=== PATIENT | female | born 1940 | race Caucasian/White ===

== ENCOUNTER 2016-09-11 13:25 | Emergency (ER) | payer MEDICARE, OTHER ==
[~2016-09-11] VITALS: Ht 149.9 cm; Wt 67.1 kg
[~2016-09-11 13:25] MED LIST: ASPI81 PO; B COTAB3 PO; CHOL1CAP6 PO; FA-8800C2 PO; LOSA25TA31 PO; MAGN400C2 PO; OMEG12002 PO; OMEP20TA PO; PRAV10 PO; TAB-TAB PO; UMEC1INH PO
[2016-09-11 13:42] VITALS: BP 116/70; PULSE 96; RESP 18; TEMP 98.3; O2SAT 98
[2016-09-11] MEDS ORDERED: EPIP0.3I IM (13:58)
[2016-09-11] MEDS ORDERED: PRAV10TA PO (13:58)
[2016-09-11] MEDS ORDERED: FOLI5CAP PO (13:58)
[2016-09-11] MEDS ORDERED: ASPI81CH CHEW (13:58)
[2016-09-11] MEDS ORDERED: MONT10TA4 PO (13:58)
[2016-09-11] MEDS ORDERED: MULT-120 PO (13:58)
[2016-09-11] MEDS ORDERED: LOSA50TA PO (13:58)
[2016-09-11] MEDS ORDERED: UMEC1INH INH (13:58)
[2016-09-11] MEDS ORDERED: OMEP20TA PO (13:58)
[2016-09-11 14:10] VITALS: O2SAT 96
[2016-09-11] MEDS ORDERED: methylPREDNISolone SOD SUCC 125 MG/2 ML VIAL IVP ONE (14:15)
[2016-09-11] MEDS ORDERED: SODIUM CHLORIDE 0.9% FLUSH 5 ML FLUSH IVF PRN (14:15)
[2016-09-11] MEDS: RESP: ALBUTEROL 2.5 MG/IPRATROPIUM 0.5 MG NEB (SCH) INH ×2 (14:17→14:18)
[2016-09-11 14:20] VITALS: O2SAT 96
[2016-09-11 14:23] LABS: BASOPHIL # 0.1 TH/MM3 (0-0.2); BASOPHIL % 0.7 % (0.0-2.0); EOSINOPHIL # 0.2 TH/MM3 (0-0.4); EOSINOPHIL % 2.1 % (0.0-4.0); HEMATOCRIT 43.3 % (35.0-46.0); LYMPH % 26.5 % (9.0-44.0); LYMPHOCYTE # 2.6 TH/MM3 (1.0-4.8); MEAN CELL VOLUME 88.5 FL (80.0-100.0); MEAN CORPUSCULAR HGB CONC 32.8 % (32.0-36.0); MONO % 9.2 % (0.0-8.0); NEUT % 61.5 % (16.0-70.0); PLATELET COUNT 285 TH/MM3 (150-450); RED BLOOD COUNT 4.89 MIL/MM3 (4.00-5.30); RED CELL DISTRIBUTION WIDTH 13.3 % (11.6-17.2); WHITE BLOOD COUNT 9.8 TH/MM3 (4.0-11.0)
[2016-09-11 14:25] LABS: HEMO FLAGS DIFF FINAL
--- NOTE | 2016-09-11 14:25 | PD ---
HPI Chief Complaint: Respiratory Symptoms Time Seen by Provider: 14:03 Travel History International Travel<30 days: No Contact w/Intl Traveler<30days: No Traveled to known affect area: No History of Present Illness HPI Patient is a 76-year-old female with history of COPD, presents to emergency room for evaluation of not feeling well. Patient reports that for the past week , she has had increased cough and congestion, reports that her cough has been originally nonproductive but reports that her cough has begun to be productive today. Reports that she has been feeling overall increased weakness with myalgias. Denies fever/chills. Patient reports no sick contacts. She did get the flu and pneumonia vaccine this year. No recent travels/trips. PFSH Past Medical History Arthritis: No Asthma: No Autoimmune Disease: No Blood Disorders: No Anxiety: No Depression: No Heart Rhythm Problems: No Cancer: No Cardiac Catheterization: Yes (DECEMBER 2011) Cardiovascular Problems: Yes (ANG[place]) High Cholesterol: Yes Chemotherapy: No Chest Pain: No Congestive Heart Failure: No COPD: No Cerebrovascular Accident: No Diabetes: No Diminished Hearing: No Endocrine: No GERD: Yes Genitourinary: No Hiatal Hernia: No Hypertension: Yes Immune Disorder: No Kidney Stones: No Musculoskeletal: No Neurologic: No Psychiatric: No Reproductive: Yes (FIBROIDS) Respiratory: No Immunizations Current: Yes (SHINGLES) Migraines: No Radiation Therapy: No Renal Failure: No Seizures: No Sickle Cell Disease: No Sleep Apnea: No Thyroid Disease: No Ulcer: No ?: Not Menopausal: Yes Past Surgical History Abdominal Surgery: No AICD: No Appendectomy: Yes Arteriovenous Shunt: No Cardiac Surgery: No Endocrine Surgery: No Eye Surgery: No Genitourinary Surgery: No Gynecologic Surgery: Yes (HYSTERECTOMY 1990) Hysterectomy: Yes Insulin Pump: No Joint Replacement: No Oral Surgery: No Pacemaker: No Thoracic Surgery: No Other Surgery: No Family History Family Myocardial Infarction: Yes (BROTHER AND MOTHER) Social History Alcohol Use: Yes (SOCIAL) Tobacco Use: No Substance Use: No Allergies-Medications (Allergen,Severity, Reaction): Coded Allergies: Amoxicillin (Verified Allergy, Severe, Rash, 09/11/16) Augmentin (Verified Allergy, Severe, HAND SWELLING AND ITCHING, 09/11/16) Cipro (Verified Allergy, Severe, RASH, 09/11/16) Gentamicin (Verified Allergy, Severe, BACTERIAL INFECTION, 09/11/16) Macrobid (Verified Allergy, Severe, HIVES, 09/11/16) Morphine (Verified Allergy, Severe, WEAKNESS, 09/11/16) Nitrofurantoin (Verified Allergy, Severe, RASH, 09/11/16) Ampicillin (Verified Adverse Reaction, Severe, BACTERIAL INFECTION, 09/11/16 ) Clindamycin (Verified Adverse Reaction, Severe, BACTERIAL INFECTION, ) Reported Meds & Prescriptions Reported Meds & Active Scripts Active Reported Multivitamin Women (Multiple Vitamins W/ Minerals) 1 Tab Tab 1 Tab PO DAILY Folic Acid 5 Mg Cap 5 Mg PO DAILY Epipen 2-Watson Inj (Epinephrine) 0.3 Mg/0.3 Ml Pfpen 0.3 Mg IM ONCE PRN Montelukast (Montelukast Sodium) 10 Mg Tab 10 Mg PO HS Incruse Ellipta Inh (Umeclidinium [place] Inh) 0.0625 Mg/Act Inh 62.5 Mcg INH DAILY Aspirin 81 Mg Chew 81 Mg CHEW DAILY Omeprazole 20 Mg Tab 20 Mg PO BID Pravastatin 10 Mg Tab 10 Mg PO EVERY OTHER DAY Losartan (Losartan Potassium) 50 Mg Tab 50 Mg PO DAILY Review of Systems General / Constitutional: No: Fever, Chills Eyes: No: Visual changes HENT: No: Headaches Cardiovascular: No: Chest Pain or Discomfort Respiratory: Positive: Cough, Shortness of Breath, Wheezing Gastrointestinal: No: Nausea, Abdominal Pain Genitourinary: No: Dysuria Musculoskeletal: No: Pain Skin: No Rash Neurologic: No: Weakness Psychiatric: No: Depression Endocrine: No: Polydipsia Hematologic/Lymphatic: No: Easy Bruising Physical Exam Narrative GENERAL: nad, nontoxic SKIN: Warm and dry. HEAD: Atraumatic. Normocephalic. EYES: Pupils equal and round. No scleral icterus. No injection or drainage. ENT: No nasal bleeding or discharge. Mucous membranes pink and moist. NECK: Trachea midline. No JVD. CARDIOVASCULAR: Regular rate and rhythm. No murmur appreciated. RESPIRATORY: Decreased breath sounds equal bilaterally, scattered wheezing GASTROINTESTINAL: Abdomen soft, non-tender, nondistended. Hepatic and splenic margins not palpable. MUSCULOSKELETAL: No obvious deformities. No clubbing. No cyanosis. No edema. NEUROLOGICAL: Awake and alert. No obvious cranial nerve deficits. Motor grossly within normal limits. Normal speech. PSYCHIATRIC: Appropriate mood and affect; insight and judgment normal. Data Data Last Documented VS Vital Signs Date Time Temp Pulse Resp B/P Pulse Ox O2 Delivery O2 Flow Rate FiO2 09/11/16 14:20 96 21 09/11/16 13:42 98.3 96 18 116/70 Orders Complete Blood Count With Diff (09/11/16 14:06) Comprehensive Metabolic Panel (09/11/16 14:06) Act Partial Throm Time (Ptt) (09/11/16 14:06) Prothrombin Time / Inr (Pt) (09/11/16 14:06) Urinalysis - C+S If Indicated (09/11/16 14:06) Influenzae A/B Antigen (09/11/16 14:06) Iv Access Insert/Monitor (09/11/16 14:06) Oximetry (09/11/16 14:06) Chest, Single Ap (09/11/16 14:06) Sodium Chloride 0.9% Flush (Ns Flush) (09/11/16 14:15) Methylprednisolone So Succ Inj (Solumedr (09/11/16 14:15) Albuterol-Ipratropium Neb (Duoneb Neb) (09/11/16 14:15) Labs Laboratory Tests Test 09/11/16 14:10 White Blood Count 9.8 TH/MM3 Red Blood Count 4.89 MIL/MM3 Hemoglobin 14.2 GM/DL Hematocrit 43.3 % Mean Corpuscular Volume 88.5 FL Mean Corpuscular Hemoglobin 29.0 PG Mean Corpuscular Hemoglobin 32.8 % Concent Red Cell Distribution Width 13.3 % Platelet Count 285 TH/MM3 Mean Platelet Volume 7.4 FL Neutrophils (%) (Auto) 61.5 % Lymphocytes (%) (Auto) 26.5 % Monocytes (%) (Auto) 9.2 % Eosinophils (%) (Auto) 2.1 % Basophils (%) (Auto) 0.7 % Neutrophils # (Auto) 6.0 TH/MM3 Lymphocytes # (Auto) 2.6 TH/MM3 Monocytes # (Auto) 0.9 TH/MM3 Eosinophils # (Auto) 0.2 TH/MM3 Basophils # (Auto) 0.1 TH/MM3 CBC Comment DIFF FINAL Differential Comment Sodium Level 139 MEQ/L Potassium Level 3.8 MEQ/L Chloride Level 101 MEQ/L Carbon Dioxide Level 28.6 MEQ/L Anion Gap 9 MEQ/L Blood Urea Nitrogen 22 MG/DL Creatinine 1.20 MG/DL Estimat Glomerular Filtration 44 ML/MIN Rate Random Glucose 106 MG/DL Calcium Level 9.0 MG/DL Total Bilirubin 0.2 MG/DL Aspartate Amino Transf 26 U/L (AST/SGOT) Alanine Aminotransferase 42 U/L (ALT/SGPT) Alkaline Phosphatase 74 U/L Total Protein 8.1 GM/DL Albumin 3.5 GM/DL MDM Medical Decision Making Medical Screen Exam Complete: Yes Emergency Medical Condition: Yes Interpretation(s) Vital Signs Date Time Temp Pulse Resp B/P Pulse Ox O2 Delivery O2 Flow Rate FiO2 09/11/16 13:42 98.3 96 18 116/70 98 Differential Diagnosis COPD Exacerbation, Pneumonia, Influenza, Viral syndrome Narrative Course Patient is a 76 year old female with hx of COPD exacerbation, presents to ER with c/o of cough/congestion, COPD exacerbation for the past week. Reports no fever/chills. Reports that she has not been feeling well and has been feeling overall weak than normal. Denies chest pain. Reports sob. Reports cough initially nonproductive - reports that she has had productive cough today. No sick contacts. Pt does have scattered wheezing on exam. xray of chest ordered. will check for influenza. iv steroids and neb treatments ordered for patient - will re- evaluate Patient reevaluated, patient with decreased wheezing on exam. CBC WBC 9.8 hgb 14.2 hct: 43.3 platelets: 285 Bmp Sodium 139 Chloride 101 Potassium 3.8 Carbon dioxide 28.6 BUN 22 Creatinine 1.2 (baseline for patient) Influenza A and B negative X-ray of chest: No acute cardiopulmonary disease identified All labs and all studies reviewed with patient in detail. Patient reports that she is feeling much better. Patient will follow-up with her primary care doctor and return to ER as needed. Diagnosis Primary Impression: COPD exacerbation Patient Instructions: General Instructions Departure Forms: Tests/Procedures, Work Release Enter return to work date: Sep 14, 2016 Additional Instructions: Please follow-up with your primary care doctor Return to the emergency room as needed Please return to the emergency room if symptoms progress or worsen Med/Other Pt SpecificInfo: Prescription(s) given Scripts Albuterol 8.5 GM Inh (Proair Hfa 8.5 GM Inh)90 Mcg/Act Aer2 Puff INH Q4-6H PRN ( SHORTNESS OF BREATH) #1 INHALER Ref 0 108 mcg/actuation Prov:Kaitlyn Arana DO 09/11/16 Prednisone 20 Mg Tab20 Mg PO BID 5 Days Ref 0 Prov:Kaitlyn Arana DO 09/11/16 Disposition: 01 DISCHARGE HOME Condition: Stable Kaitlyn Arana DO Sep 11, 2016 14:25
[2016-09-11 14:35] LABS: CHLORIDE 101 MEQ/L (98-107); POTASSIUM 3.8 MEQ/L (3.5-5.1); SODIUM (NA) 139 MEQ/L (136-145)
[2016-09-11 14:38] LABS: ANION GAP 9 MEQ/L (5-15); BICARBONATE 28.6 MEQ/L (21.0-32.0); BLOOD UREA NITROGEN 22 MG/DL (7-18)
[2016-09-11 14:41] LABS: ALT (GPT) 42 U/L (10-53); AST (GOT) 26 U/L (15-37)
[2016-09-11 14:42] LABS: GLOMERULAR FILTRATION RATE 44 ML/MIN (>89)
[2016-09-11 14:43] LABS: TOTAL BILIRUBIN ADULT 0.2 MG/DL (0.2-1.0)
[2016-09-11 14:44] LABS: ALKALINE PHOSPHATASE 74 U/L (45-117)
--- NOTE | 2016-09-11 14:50 | RADHPO ---
EXAM DATE/TIME: 09/11/2016 14:21 [facility] COMPARISON: CHEST SINGLE AP, December 16, 2013, 11:44. INDICATIONS : Cough, congestion, short of breath. MEDICAL HISTORY : Hypertension. Hypercholesterolemia. Chronic obstructive pulmonary disease. Asthma. GERD. SURGICAL HISTORY : Hysterectomy. Appendectomy. Cardiac catheterization. Right femur. ENCOUNTER: Initial ACUITY: 1 week PAIN SCORE: 0/10 LOCATION: chest FINDINGS: Single AP view of the chest. The lungs are clear. Cardiomediastinal silhouette within normal limits. No evidence of pleural effusion or pneumothorax. CONCLUSION: No acute cardiopulmonary disease identified. Jono Mcdaniels MD on September 11, 2016 at 14:48 Board Certified Radiologist. This report was verified electronically.
[2016-09-11] MEDS ORDERED: PRED20 PO (15:03)
[2016-09-11] MEDS ORDERED: ALBUAER3 INH (15:03)
[2016-09-11 15:30] LABS: APTT (PATIENT) 26.6 SEC (24.3-30.1); PROTHROMBIN TIME - PATIENT 10.6 SEC (9.8-11.6)
== END 2016-09-11 15:15 | disposition home or self-care (01) ==
LOC: PHED 13:25
DX: J44.1 Chronic obstructive pulmonary disease with (acute) exacerbation (principal); E78.00 Pure hypercholesterolemia, unspecified; K21.9 Gastro-esophageal reflux disease without esophagitis; I10 Essential (primary) hypertension; I20.9 Angina pectoris, unspecified
CPT/HCPCS: 71010; 80053; 85025; 85610; 85730; 87804; 94640; 94664; 96374; 99283; J2930

== ENCOUNTER 2016-12-12 22:12 | Emergency (ER) | payer MEDICARE ==
[~2016-12-12] VITALS: Ht 147.3 cm; Wt 68.6 kg
[~2016-12-12 22:12] MED LIST changes: +ALBUAER3 INH; -ASPI81 PO; +ASPI81CH CHEW; -B COTAB3 PO; -CHOL1CAP6 PO; +EPIP0.3I IM; -FA-8800C2 PO; +FOLI5CAP PO; -LOSA25TA31 PO; +LOSA50TA PO; -MAGN400C2 PO; +MONT10TA4 PO; +MULT-120 PO; -OMEG12002 PO; -PRAV10 PO; +PRAV10TA PO; +PRED20 PO; -TAB-TAB PO; +UMEC1INH INH; -UMEC1INH PO
[2016-12-12 22:18] VITALS: PULSE 88; RESP 18; TEMP 98; O2SAT 98
--- NOTE | 2016-12-12 22:40 | PD ---
HPI Chief Complaint: Injury Time Seen by Provider: 22:32 Travel History International Travel<30 days: No Contact w/Intl Traveler<30days: No Traveled to known affect area: No History of Present Illness HPI 76-year-old female presents to the emergency room for evaluation of left foot pain. Patient tripped and fell approximately 6 hours prior to arrival twisting her foot. Since then she has had excruciating pain with ambulation and range of motion. Pain is 10/10 when she is moving her foot but is manageable when her foot is still. Quality is "tight." She has not taken anything for pain. She has been using a walker to ambulate at home. Denies paresthesias. Denies any other injuries from falling. PFSH Past Medical History Arthritis: No Asthma: No Autoimmune Disease: No Blood Disorders: No Anxiety: No Depression: No Heart Rhythm Problems: No Cancer: No Cardiac Catheterization: Yes (DECEMBER 2011) Cardiovascular Problems: Yes ([place]) High Cholesterol: Yes Chemotherapy: No Chest Pain: No Congestive Heart Failure: No COPD: No Cerebrovascular Accident: No Diabetes: No Diminished Hearing: No Endocrine: No GERD: Yes Genitourinary: No Hiatal Hernia: No Hypertension: Yes Immune Disorder: No Kidney Stones: No Musculoskeletal: No Neurologic: No Psychiatric: No Reproductive: Yes (FIBROIDS) Respiratory: No Immunizations Current: Yes (SHINGLES) Migraines: No Radiation Therapy: No Renal Failure: No Seizures: No Sickle Cell Disease: No Sleep Apnea: No Thyroid Disease: No Ulcer: No Menopausal: Yes Past Surgical History Abdominal Surgery: No AICD: No Appendectomy: Yes Arteriovenous Shunt: No Cardiac Surgery: No Endocrine Surgery: No Eye Surgery: No Genitourinary Surgery: No Gynecologic Surgery: Yes (HYSTERECTOMY 1990) Hysterectomy: Yes Insulin Pump: No Joint Replacement: No Oral Surgery: No Pacemaker: No Thoracic Surgery: No Other Surgery: No Social History Alcohol Use: Yes (SOCIAL) Tobacco Use: No Substance Use: No Allergies-Medications (Allergen,Severity, Reaction): Coded Allergies: Amoxicillin (Verified Allergy, Severe, Rash, 12/12/16) Augmentin (Verified Allergy, Severe, HAND SWELLING AND ITCHING, 12/12/16) Cipro (Verified Allergy, Severe, RASH, 12/12/16) Gentamicin (Verified Allergy, Severe, BACTERIAL INFECTION, 12/12/16) Macrobid (Verified Allergy, Severe, HIVES, 12/12/16) Morphine (Verified Allergy, Severe, WEAKNESS, 12/12/16) Nitrofurantoin (Verified Allergy, Severe, RASH, 12/12/16) Ampicillin (Verified Adverse Reaction, Severe, BACTERIAL INFECTION, 12/12/16 ) Clindamycin (Verified Adverse Reaction, Severe, BACTERIAL INFECTION, ) Reported Meds & Prescriptions Reported Meds & Active Scripts Active Proair Hfa 8.5 GM Inh (Albuterol Sulfate) 90 Mcg/Act Aer 2 Puff INH Q4-6H PRN 108 mcg/actuation Reported Multivitamin Women (Multiple Vitamins W/ Minerals) 1 Tab Tab 1 Tab PO DAILY Folic Acid 5 Mg Cap 5 Mg PO DAILY Epipen 2-Watson Inj (Epinephrine) 0.3 Mg/0.3 Ml Pfpen 0.3 Mg IM ONCE PRN Montelukast (Montelukast Sodium) 10 Mg Tab 10 Mg PO HS Incruse Ellipta Inh (Umeclidinium [place] Inh) 0.0625 Mg/Act Inh 62.5 Mcg INH DAILY Aspirin 81 Mg Chew 81 Mg CHEW DAILY Omeprazole 20 Mg Tab 20 Mg PO BID Pravastatin 10 Mg Tab 10 Mg PO EVERY OTHER DAY Losartan (Losartan Potassium) 50 Mg Tab 50 Mg PO DAILY Review of Systems Except as stated in HPI: all other systems reviewed are Neg Physical Exam Narrative GENERAL: Well-nourished, well-developed elderly female in no acute distress. Afebrile. SKIN: Focused skin assessment warm/dry. No significant erythema or ecchymosis on the left foot. There is mild ecchymosis of the right second toe. HEAD: Normocephalic. EYES: No scleral icterus. No injection or drainage. NECK: Supple, trachea midline. No JVD or lymphadenopathy. CARDIOVASCULAR: Regular rate and rhythm without murmurs, gallops, or rubs. RESPIRATORY: Breath sounds equal bilaterally. No accessory muscle use. EXTREMITY: Left watershed tender to palpation over the fifth metatarsal. Slightly limited range of motion in foot secondary to pain. Very mild edema over the lateral aspect of the foot. 2+ dorsalis pedis pulses. Less than 2 second capillary refill distally. Data Data Last Documented VS Vital Signs Date Time Temp Pulse Resp B/P Pulse Ox O2 Delivery O2 Flow Rate FiO2 12/12/16 22:18 98.0 88 18 98 MDM Medical Decision Making Medical Screen Exam Complete: Yes Emergency Medical Condition: Yes Medical Record Reviewed: Yes Differential Diagnosis Fracture versus contusion versus sprain versus strain Narrative Course 76-year-old female presents to the emergency room for evaluation of left foot pain after trip and fall 6 hours prior to arrival. Patient denies any other injuries. Left foot has mild edema over the lateral aspect. There is tenderness to palpation over the fifth metatarsal. Less than 2 second capillary refill distally. 2+ dorsalis pedis pulse. Patient reports mild pain of the right second toe which is slightly ecchymotic. She has good range of motion and they are mountainous palpation. Patient was offered x-ray with the caveat that it would not change treatment. She declined. Toe will be zenaida taped to the adjacent toe. X-ray of the left foot is ordered and pending. Patient declined pain medication. Patient signed out to nighttime provider pending x-ray results. Please see his note for further details. Condition: Stable Brittany Chau December 12, 2016 22:40
--- NOTE | 2016-12-12 23:05 | RADHPO ---
EXAM DATE/TIME: 12/12/2016 22:46 [facility] COMPARISON: No previous studies available for comparison. INDICATIONS : Left foot pain post fall. MEDICAL HISTORY : None. SURGICAL HISTORY : None. ENCOUNTER: Initial ACUITY: 1 day PAIN SCORE: 5/10 LOCATION: Left foot. FINDINGS: Three view examination of the left foot demonstrates soft tissue swelling laterally. Nondisplaced fra cture along the proximal shaft of the fifth metatarsal. The calcaneus is intact. Bony mineralizatio n is normal. CONCLUSION: Nondisplaced fracture proximal shaft fifth metatarsal. Jesus Beckford MD on December 12, 2016 at 23:01 Board Certified Radiologist. This report was verified electronically.
--- NOTE | 2016-12-12 23:27 | PD ---
Data Data Last Documented VS Vital Signs Date Time Temp Pulse Resp B/P Pulse Ox O2 Delivery O2 Flow Rate FiO2 12/12/16 22:18 98.0 88 18 98 Orders Foot, Complete ([id number]) (12/12/16 ) Splint Or Brace Apply/Monitor (12/12/16 22:40) MDM Medical Record Reviewed: Yes Supervised Visit with SHASHI: No Narrative Course Last 24 hours Impressions Foot X-Ray 12/12/16 0000 Signed Impressions: Service Date/Time: Monday, December 12, 2016 22:46 - CONCLUSION: Nondisplaced fracture proximal shaft fifth metatarsal. Jesus Beckford MD d/w Dr Coronado of podiatry: post-op boot, crutches, f/u Wednesday, non-weight bearing, plan d/w patient who is agreeable with it. Diagnosis Primary Impression: Mcdaniels fracture Qualified Code: S99.199A - Mcdaniels fracture, closed, initial encounter Referrals: Jesus Coronado DPM 2 days Additional Instruction: You have a choice when it comes to health care, and we are glad that you chose [facility]. Hopefully, we have met your expectations on today's visit. You are welcome to return to [facility] at any time, as we are committed to meeting the health care needs of our community. Med/Other Pt SpecificInfo: No Change to Meds Disposition: 01 DISCHARGE HOME Condition: Stable Devonte Gregory MD December 12, 2016 23:27
[2016-12-13] MEDS ORDERED: IBUPROFEN 600 MG TAB PO ONE
[2016-12-13 00:48] VITALS: BP 130/78; PULSE 88; RESP 18; O2SAT 98
== END 2016-12-13 00:51 | disposition home or self-care (01) ==
LOC: PHEFT 22:12
DX: S92.355A Nondisplaced fracture of fifth metatarsal bone, left foot, initial encounter for closed fracture (principal); Y93.89 Activity, other specified; Y92.89 Other specified places as the place of occurrence of the external cause; Y99.8 Other external cause status; X50.1XXA Overexertion from prolonged static or awkward postures, initial encounter; W01.0XXA Fall on same level from slipping, tripping and stumbling without subsequent striking against object, initial encounter
CPT/HCPCS: 73630; 99283; E0113; L2114

== ENCOUNTER 2017-04-20 13:54 | Emergency (ER) | payer MEDICARE ==
[~2017-04-20] VITALS: Ht 147.3 cm; Wt 65.9 kg
[~2017-04-20 13:54] MED LIST changes: -PRED20 PO
[2017-04-20 14:05] VITALS: BP 142/70; PULSE 71; RESP 16; TEMP 98.4; O2SAT 100; O2SAT 98
[2017-04-20] MEDS ORDERED: FOLI400T PO (14:05)
[2017-04-20] MEDS ORDERED: MULT-65 PO (14:05)
[2017-04-20] MEDS ORDERED: MAGN400T2 PO (14:06)
[2017-04-20] MEDS ORDERED: FISHCAP4 PO (14:06)
--- NOTE | 2017-04-20 14:28 | PD ---
HPI Chief Complaint: Allergic/Adverse Reaction Time Seen by Provider: 14:19 Travel History International Travel<30 days: No Contact w/Intl Traveler<30days: No Traveled to known affect area: No History of Present Illness HPI The patient is a 77-year-old female who presents to the emergency department after a bee sting. The patient states that she was stung by a yellow jacket earlier today while working in the yard. The patient states her was stung yesterday while working in the yard. She was stung on the left aspect of the neck approximately one and a half hours prior to arrival. The patient states she had some itching, swelling, redness over the left aspect of the neck. The patient felt like she was short of breath and had difficulty swallowing and subsequently took a Benadryl, one and a half pills. The patient states her symptoms did improve after taken Benadryl. She denies any history of anaphylactic reactions, but does have reactions to bee stings in the past. The patient states that he throws swelling and chest pain have improved. She denies any shortness of breath, nausea, vomiting, or abdominal pain. She does complain of mild redness to left aspect of the neck but notes the itching has improved. PFSH Past Medical History Arthritis: No Asthma: No Autoimmune Disease: No Blood Disorders: No Anxiety: No Depression: No Heart Rhythm Problems: No Cancer: No Cardiac Catheterization: Yes (December 2011) Cardiovascular Problems: Yes (ANGINA) High Cholesterol: Yes Chemotherapy: No Chest Pain: Yes Congestive Heart Failure: No COPD: Yes Cerebrovascular Accident: No Diabetes: No Diminished Hearing: No Endocrine: No Gastrointestinal Disorders: No GERD: Yes Genitourinary: No Headaches: No Hiatal Hernia: No Heparin Induced Thrombocytopen: No Hypertension: Yes Immune Disorder: No Implanted Vascular Access Dvce: No Kidney Stones: No Musculoskeletal: No Neurologic: No Psychiatric: No Reproductive: Yes (Fibroids) Respiratory: No Immunizations Current: Yes (SHINGLES) Migraines: No Radiation Therapy: No Renal Failure: No Seizures: No Sickle Cell Disease: No Sleep Apnea: No Thyroid Disease: No Ulcer: No Tetanus Vaccination: > 5 Years Influenza Vaccination: Yes ?: Not Menopausal: Yes Past Surgical History Abdominal Surgery: No AICD: No Appendectomy: Yes Arteriovenous Shunt: No Cardiac Surgery: No Ear Surgery: Yes (X's 2) Endocrine Surgery: No Eye Surgery: No Genitourinary Surgery: No Gynecologic Surgery: Yes (HYSTERECTOMY 1990) Hysterectomy: Yes Insulin Pump: No Joint Replacement: No Neurologic Surgery: No Oral Surgery: No Pacemaker: No Thoracic Surgery: No Other Surgery: No Family History Family Myocardial Infarction: Yes (Brother, mother) Social History Alcohol Use: Yes (1-2 glasses wine daily) Tobacco Use: No Substance Use: No Allergies-Medications (Allergen,Severity, Reaction): Coded Allergies: amoxicillin (Unverified Allergy, Severe, HAND SWELLING AND ITCHING, ) ciprofloxacin (Unverified Allergy, Severe, RASH, 04/20/17) clavulanic acid (Unverified Allergy, Severe, HAND SWELLING AND ITCHING, 07/25) gentamicin (Unverified Allergy, Severe, BACTERIAL INFECTION, 04/20/17) morphine (Unverified Allergy, Severe, WEAKNESS, 04/20/17) nitrofurantoin (Unverified Allergy, Severe, RASH, 04/20/17) ampicillin (Unverified Adverse Reaction, Severe, BACTERIAL INFECTION, 04/20) clindamycin (Unverified Adverse Reaction, Severe, BACTERIAL INFECTION, 07/25) Reported Meds & Prescriptions Reported Meds & Active Scripts Active Proair Hfa 8.5 GM Inh (Albuterol Sulfate) 90 Mcg/Act Aer 2 Puff INH Q4-6H PRN 108 mcg/actuation Reported Fish Oil + D3 (Fish Oil-Cholecalciferol) 1,200-1,000 Mg-Unit Cap 1 Cap PO DAILY Magnesium Oxide 400 Mg Tab 400 Mg PO DAILY Multi-Vitamin Daily (Multiple Vitamin) 1 Tab Tab 1 Tab PO DAILY Folic Acid 0.4 Mg Tab 400 Mcg PO DAILY Montelukast (Montelukast Sodium) 10 Mg Tab 10 Mg PO HS Aspirin 81 Mg Chew 81 Mg CHEW DAILY Omeprazole 20 Mg Tab 20 Mg PO BID Pravastatin 10 Mg Tab 10 Mg PO EVERY OTHER DAY Losartan (Losartan Potassium) 50 Mg Tab 50 Mg PO DAILY Review of Systems Except as stated in HPI: all other systems reviewed are Neg HENT: No: Lightheadedness Cardiovascular: No: Chest Pain or Discomfort Respiratory: Positive: Shortness of Breath (earlier which has resolved after taking Benadryl), No: Wheezing Gastrointestinal: No: Nausea, Vomiting Skin: Positive Rash, Positive Itching Physical Exam Narrative GENERAL: Awake, alert, pleasant 77-year-old female who appears her stated age and is in no acute respiratory distress. SKIN: Focused skin assessment warm/dry. Mild erythema which is blanching over the lateral aspect of the left neck. No visible stinger. HEAD: Atraumatic. Normocephalic. EYES: No injection or drainage. ENT: No nasal bleeding or discharge. Mucous membranes pink and moist. No angioedema of the uvula, tongue, or lips noted on inspection. NECK: Trachea midline. No JVD. CARDIOVASCULAR: Regular rate and rhythm. No murmur appreciated. RESPIRATORY: No accessory muscle use. Clear to auscultation. Breath sounds equal bilaterally. No wheezing noted. GASTROINTESTINAL: Abdomen soft, non-tender, nondistended. No rebound tenderness. MUSCULOSKELETAL: No obvious deformities. No clubbing. No cyanosis. No edema. NEUROLOGICAL: Awake and alert. No obvious cranial nerve deficits. Motor grossly within normal limits. Normal speech. PSYCHIATRIC: Appropriate mood and affect; insight and judgment normal. Data Data Last Documented VS Vital Signs Date Time Temp Pulse Resp B/P (MAP) Pulse Ox O2 Delivery O2 Flow Rate FiO2 04/20/17 14:05 98.4 71 16 142/70 (94) 98 Orders Orders Ecg Monitoring (04/20/17 14:25) Iv Access Insert/Monitor (04/20/17 14:25) Oximetry (04/20/17 14:25) Methylprednisolone So Succ Inj (Solumedr (04/20/17 14:30) Famotidine Inj (Pepcid Inj) (04/20/17 14:30) Sodium Chloride 0.9% Flush (Ns Flush) (04/20/17 14:30) [facility] Medical Decision Making Medical Screen Exam Complete: Yes Emergency Medical Condition: Yes Medical Record Reviewed: Yes Differential Diagnosis Differential diagnosis includes allergic reaction, anaphylaxis, angioedema, hymenoptera exposure. Narrative Course the patient had Benadryl prior to arrival. IV was established by EMS prior to arrival. The patient's one and a half hours status post exposure, her symptoms are improving, therefore, I do not believe EpiPen is indicated. The patient was administered site Medrol, Pepcid, and monitored in the emergency department. The patient is reevaluated several times, her symptoms had resolved. No indication for EpiPen. The patient will be discharged home on medications, is advised to return if symptoms worsen or progress. Diagnosis Primary Impression: Allergic reaction Qualified Codes: T78.40XA - Allergy, unspecified, initial encounter Patient Instructions: General Instructions Additional Instructions: Medications as directed. Follow-up with your primary physician. Return if symptoms worsen or progress. Cool compresses to the area that was affected. Med/Other Pt SpecificInfo: Prescription(s) given Scripts Epinephrine Inj (Epipen 2-Watson Inj) 0.3 Mg/0.3 Ml Pfpen 0.3 MG IM ONCE Y for ALLERGIC REACTION, #1 PACK 0 Refills Prov: Isidoro Prakash MD 04/20/17 Ranitidine (Zantac) 150 Mg Tab 150 MG PO BID for Reduce Stomach Acid for 5 Days, #10 TAB 0 Refills Prov: Isidoro Prakash MD 04/20/17 Diphenhydramine (Diphenhydramine) 25 Mg Cap 25 MG PO Q6H Y for ALLERGIES, #20 CAP 0 Refills Prov: Isidoro Prakash MD 04/20/17 Prednisone (Deltasone) 20 Mg Tab 40 MG PO DAILY for 4 Days, #8 TAB 0 Refills Prov: Isidoro Prakash MD 04/20/17 Disposition: 01 DISCHARGE HOME Condition: Stable Isidoro Prakash MD Apr 20, 2017 14:28
[2017-04-20] MEDS ORDERED: FAMOTIDINE 20 MG/2 ML VIAL IV PUSH ONE (14:30)
[2017-04-20] MEDS ORDERED: SODIUM CHLORIDE 0.9% FLUSH 10 ML FLUSH IV FLUSH PRN (14:30)
[2017-04-20] MEDS ORDERED: methylPREDNISolone SOD SUCC 125 MG/2 ML VIAL IVP ONE (14:30)
[2017-04-20] MEDS ORDERED: DIPH25CA PO (16:13)
[2017-04-20] MEDS ORDERED: EPIP0.3I IM (16:13)
[2017-04-20] MEDS ORDERED: PRED-503 PO (16:13)
[2017-04-20] MEDS ORDERED: ZANT150T2 PO (16:13)
[2017-04-20 16:35] VITALS: BP 141/72; PULSE 71; RESP 16; O2SAT 100
== END 2017-04-20 16:50 | disposition home or self-care (01) ==
LOC: PHED 13:54
DX: T78.40XA Allergy, unspecified, initial encounter (principal)
CPT/HCPCS: 96374; 99284; J2930

== ENCOUNTER 2017-12-18 13:42 | Emergency (ER) | payer MEDICARE ==
[~2017-12-18] VITALS: Ht 147.3 cm; Wt 67.0 kg
[~2017-12-18 13:42] MED LIST changes: +ASPI-516 CHEW; -ASPI81CH CHEW; +DIPH25CA PO; +FISHCAP4 PO; +FOLI400T PO; -FOLI5CAP PO; +MAGN400T2 PO; -MULT-120 PO; +MULT-65 PO; -OMEP20TA PO; +OMEP20TA93 PO; +PRED-503 PO; -UMEC1INH INH; +ZANT150T2 PO
[2017-12-18 13:44] VITALS: BP 151/77; PULSE 74; RESP 18; TEMP 97.6; O2SAT 98
[2017-12-18] MEDS ORDERED: SODIUM CHLORIDE 0.9% FLUSH 10 ML FLUSH IVF PRN (14:15)
--- NOTE | 2017-12-18 14:19 | PD ---
HPI Chief Complaint: Cold / Flu Symptoms Time Seen by Provider: 14:10 Travel History International Travel<30 days: No Contact w/Intl Traveler<30days: No Traveled to known affect area: No History of Present Illness HPI This is a 77-year-old female with history of COPD, hypertension, "asthma", who presents today from [facility] for evaluation of an abnormal chest x-ray. According to the patient she has had a cough with associated chest tightness for a week and a half. She states she was initially seen a week ago at the [facility] where they treated her for bronchitis. They prescribed an antibiotic and a steroid pack. She states she is still complaining of cough and she states it is worse. She reports that she presented back to the [facility] today. They performed a chest x-ray and told her that they were concerned that she had congestive heart failure and sent her here. The patient denies any history of congestive heart failure. She does state that she recently had an echocardiogram which showed a "leaky valve". When asked about her chest tightness, patient states it hurts all over when she coughs. She denies any exertional chest tightness but does remark that she has significant shortness of breath on exertion. The patient denies any new swelling of her extremities. There are no other complaints at time of my examination. PFSH Past Medical History Hx Anticoagulant Therapy: Yes (BABY ASA DAILY) Arthritis: No Asthma: No Autoimmune Disease: No Blood Disorders: No Anxiety: No Depression: No Heart Rhythm Problems: No Cancer: No Cardiac Catheterization: Yes (December 2011) Cardiovascular Problems: Yes (HTN, CHOL) High Cholesterol: Yes Chemotherapy: No Chest Pain: Yes Congestive Heart Failure: No COPD: Yes Cerebrovascular Accident: No Diabetes: No Diminished Hearing: No Endocrine: No Gastrointestinal Disorders: No GERD: Yes Genitourinary: No Headaches: No Hiatal Hernia: No Heparin Induced Thrombocytopen: No Hypertension: Yes Immune Disorder: No Implanted Vascular Access Dvce: No Kidney Stones: No Musculoskeletal: No Neurologic: No Psychiatric: No Reproductive: Yes (Fibroids) Respiratory: No Immunizations Current: Yes (SHINGLES) Migraines: No Radiation Therapy: No Renal Failure: No Seizures: No Sickle Cell Disease: No Sleep Apnea: No Thyroid Disease: No Ulcer: No ?: Not Menopausal: Yes Past Surgical History Abdominal Surgery: No AICD: No Appendectomy: Yes Arteriovenous Shunt: No Cardiac Surgery: No Ear Surgery: Yes (X's 2) Endocrine Surgery: No Eye Surgery: No Genitourinary Surgery: No Gynecologic Surgery: Yes (HYSTERECTOMY 1990) Hysterectomy: Yes Insulin Pump: No Joint Replacement: No Neurologic Surgery: No Oral Surgery: No Pacemaker: No Thoracic Surgery: No Other Surgery: No Social History Alcohol Use: Yes (1-2 glasses wine daily) Tobacco Use: No Substance Use: No Allergies-Medications (Allergen,Severity, Reaction): Coded Allergies: amoxicillin (Unverified Allergy, Severe, HAND SWELLING AND ITCHING, ) ciprofloxacin (Unverified Allergy, Severe, RASH, 12/18/17) clavulanic acid (Unverified Allergy, Severe, HAND SWELLING AND ITCHING, 07/26) gentamicin (Unverified Allergy, Severe, BACTERIAL INFECTION, 12/18/17) morphine (Unverified Allergy, Severe, WEAKNESS, 12/18/17) nitrofurantoin (Unverified Allergy, Severe, RASH, 12/18/17) ampicillin (Unverified Adverse Reaction, Severe, BACTERIAL INFECTION, 12/18) clindamycin (Unverified Adverse Reaction, Severe, BACTERIAL INFECTION, 07/26) Reported Meds & Prescriptions Reported Meds & Active Scripts Active Epipen 2-Watson Inj (Epinephrine) 0.3 Mg/0.3 Ml Pfpen 0.3 Mg IM ONCE PRN Zantac (Ranitidine HCl) 150 Mg Tab 150 Mg PO BID 5 Days Reported Anoro Ellipta Inh (Umeclidinium/Vilanterol) 62.5-25 Mcg/Act Aero 1 Puff INH DAILY Nexium (Esomeprazole DR) 20 Mg Capdr 20 Mg PO HS Fish Oil + D3 (Fish Oil-Cholecalciferol) 1,200-1,000 Mg-Unit Cap 1 Cap PO DAILY Magnesium Oxide 400 Mg Tab 400 Mg PO DAILY Multi-Vitamin Daily (Multiple Vitamin) 1 Tab Tab 1 Tab PO DAILY Folic Acid 0.4 Mg Tab 400 Mcg PO DAILY Montelukast (Montelukast Sodium) 10 Mg Tab 10 Mg PO HS Aspirin 81 Mg Chew 81 Mg CHEW DAILY Pravastatin 10 Mg Tab 10 Mg PO EVERY OTHER DAY Losartan (Losartan Potassium) 50 Mg Tab 25 Mg PO DAILY Review of Systems Except as stated in HPI: all other systems reviewed are Neg General / Constitutional: No: Fever, Chills HENT: No: Neck Pain Cardiovascular: No: Chest Pain or Discomfort, Palpitations Respiratory: Positive: Cough (Minimal productive sputum), Shortness of Breath, No: Hemoptysis, Pleuritic Pain Gastrointestinal: No: Nausea, Vomiting, Abdominal Pain Genitourinary: No: Dysuria, Decreased Urinary Output Musculoskeletal: No: Weakness, Pain Neurologic: No: Weakness, Dizziness, Headache Physical Exam Narrative GENERAL: Well-developed well-nourished female in mild respiratory discomfort. Patient was noted to have coughing spells when I entered the room. SKIN: Focused skin assessment warm/dry. HEAD: Atraumatic. Normocephalic. EYES: Pupils equal and round. No scleral icterus. No injection or drainage. ENT: No nasal bleeding or discharge. Mucous membranes pink and moist. NECK: Trachea midline. Supple. CARDIOVASCULAR: Regular rate and rhythm. Questionable 2/6 systolic murmur heard at the left sternal border. RESPIRATORY: Fine rales heard at the bilateral bases. Decreased respiratory effort in the bilateral bases. GASTROINTESTINAL: Abdomen soft, non-tender, nondistended. MUSCULOSKELETAL: No obvious deformities. No clubbing. No cyanosis. No edema. NEUROLOGICAL: Awake and alert. No obvious cranial nerve deficits. Motor grossly within normal limits. Normal speech. PSYCHIATRIC: Appropriate mood and affect; insight and judgment normal. Data Data Last Documented VS Vital Signs Date Time Temp Pulse Resp B/P (MAP) Pulse Ox O2 Delivery O2 Flow Rate FiO2 12/18/17 15:31 77 20 150/70 (96) 96 Room Air 12/18/17 13:44 97.6 Orders Orders Electrocardiogram (12/18/17 14:10) B-Type Natriuretic Peptide (12/18/17 14:10) Ckmb (Isoenzyme) Profile (12/18/17 14:10) Complete Blood Count With Diff (12/18/17 14:10) Comprehensive Metabolic Panel (12/18/17 14:10) Magnesium (Mg) (12/18/17 14:10) Prothrombin Time / Inr (Pt) (12/18/17 14:10) Act Partial Throm Time (Ptt) (12/18/17 14:10) Troponin I (12/18/17 14:10) Ecg Monitoring (12/18/17 14:10) Iv Access Insert/Monitor (12/18/17 14:10) Oximetry (12/18/17 14:10) Oxygen Administration (12/18/17 14:10) Sodium Chloride 0.9% Flush (Ns Flush) (12/18/17 14:15) Chest, Pa & Lat (12/18/17 14:10) Labs Laboratory Tests Test 12/18/17 12:25 White Blood Count 10.7 TH/MM3 Red Blood Count 4.58 MIL/MM3 Hemoglobin 13.6 GM/DL Hematocrit 40.7 % Mean Corpuscular Volume 88.9 FL Mean Corpuscular Hemoglobin 29.6 PG Mean Corpuscular Hemoglobin Concent 33.3 % Red Cell Distribution Width 13.3 % Platelet Count 306 TH/MM3 Mean Platelet Volume 7.0 FL Neutrophils (%) (Auto) 42.3 % Lymphocytes (%) (Auto) 45.7 % Monocytes (%) (Auto) 8.8 % Eosinophils (%) (Auto) 2.6 % Basophils (%) (Auto) 0.6 % Neutrophils # (Auto) 4.5 TH/MM3 Lymphocytes # (Auto) 4.9 TH/MM3 Monocytes # (Auto) 0.9 TH/MM3 Eosinophils # (Auto) 0.3 TH/MM3 Basophils # (Auto) 0.1 TH/MM3 CBC Comment DIFF FINAL Differential Comment Prothrombin Time 10.6 SEC Prothromb Time International Ratio 1.0 RATIO Activated Partial Thromboplast Time 23.6 SEC Blood Urea Nitrogen 26 MG/DL Creatinine 1.10 MG/DL Random Glucose 93 MG/DL Total Protein 7.3 GM/DL Albumin 3.4 GM/DL Calcium Level 9.0 MG/DL Magnesium Level 2.2 MG/DL Alkaline Phosphatase 62 U/L Aspartate Amino Transf (AST/SGOT) 22 U/L Alanine Aminotransferase (ALT/SGPT) 39 U/L Total Bilirubin 0.3 MG/DL Sodium Level 137 MEQ/L Potassium Level 3.2 MEQ/L Chloride Level 103 MEQ/L Carbon Dioxide Level 28.5 MEQ/L Anion Gap 6 MEQ/L Estimat Glomerular Filtration Rate 48 ML/MIN Total Creatine Kinase 59 U/L Troponin I LESS THAN 0.02 NG/ML B-Type Natriuretic Peptide 27 PG/ML MDM Medical Decision Making Medical Screen Exam Complete: Yes Emergency Medical Condition: Yes Differential Diagnosis Congestive heart failure versus fibrotic lung versus pneumonia versus ACS Narrative Course 77-year-old female history of COPD, presents here from the [facility] with an abnormal chest x-ray. The physician at the urgent care was worried that she had new onset congestive heart failure. Patient has no reported swelling. Patient has no reported fevers, chills. The patient has discomfort when she coughs but no true chest pain. EKG shows no evidence of acute ST elevations or depression. Patient's cardiac enzymes are within normal limits. Her BNP is within normal limits. Chest x-ray shows hyperinflation with no evidence of infiltrate or CHF. I discussed with the patient that she does not have CHF. She likely still has an acute exacerbation of chronic bronchitis. She was on a short dorsum of steroids and I will increase her steroids to 12 days starting with 40 mg daily 3 days followed by 30 mg daily 3 days followed by 20 mg daily 3 days followed by 10 mg daily 3 days. She also be given a prescription for Tessalon Perles. I discussed the findings with the patient and her and they are amenable to the plan. She will be given the on-call brand executive number for referral. Diagnosis Primary Impression: Acute exacerbation of chronic bronchitis Referrals: Alden Calderon MD Additional Instructions: Return if feeling worse. Take all of your remaining antibiotics. Take all of your steroids as prescribed. Med/Other Pt SpecificInfo: Prescription(s) given Disposition: 01 DISCHARGE HOME Condition: Stable Darryl Cadleron MD December 18, 2017 14:19
[2017-12-18 14:20] VITALS: O2SAT 96
[2017-12-18 14:40] LABS: AUTOMATED NEUTROPHIL # 4.5 TH/MM3 (1.8-7.7); BASOPHIL # 0.1 TH/MM3 (0-0.2); BASOPHIL % 0.6 % (0.0-2.0); EOSINOPHIL # 0.3 TH/MM3 (0-0.4); EOSINOPHIL % 2.6 % (0.0-4.0); HEMATOCRIT 40.7 % (35.0-46.0); HEMOGLOBIN 13.6 GM/DL (11.6-15.3); LYMPH % 45.7 % (9.0-44.0); LYMPHOCYTE # 4.9 TH/MM3 (1.0-4.8); MEAN CELL VOLUME 88.9 FL (80.0-100.0); MEAN CORPUSCULAR HEMOGLOBIN 29.6 PG (27.0-34.0); MEAN CORPUSCULAR HGB CONC 33.3 % (32.0-36.0); MONO % 8.8 % (0.0-8.0); MONOCYTE # 0.9 TH/MM3 (0-0.9); NEUT % 42.3 % (16.0-70.0); PLATELET COUNT 306 TH/MM3 (150-450); RED BLOOD COUNT 4.58 MIL/MM3 (4.00-5.30); RED CELL DISTRIBUTION WIDTH 13.3 % (11.6-17.2); WHITE BLOOD COUNT 10.7 TH/MM3 (4.0-11.0)
[2017-12-18 14:53] LABS: CHLORIDE 103 MEQ/L (98-107); SODIUM (NA) 137 MEQ/L (136-145)
--- NOTE | 2017-12-18 14:54 | RADRPT ---
EXAM DATE/TIME: 12/18/2017 14:29 [facility] COMPARISON: CHEST PA & LAT, June 28, 2015, 8:33. INDICATIONS : Coughing, chest pressure MEDICAL HISTORY : Hypertension. Chronic obstructive pulmonary disease. Hypercholesterolemia. Asthma. GERD. SURGICAL HISTORY : Hysterectomy. Appendectomy. Cardiac catheterization. Right femur. ENCOUNTER: Initial ACUITY: 1 week PAIN SCORE: 6/10 LOCATION: Bilateral chest FINDINGS: Mild hyperinflation without mass infiltrate or effusion.. The cardiomediastinal contours are unremar kable. Osseous structures are intact. CONCLUSION: Mild hyperinflation Akil Benson MD FACR on December 18, 2017 at 14:51 Board Certified Radiologist. This report was verified electronically.
[2017-12-18 14:57] LABS: ALBUMIN 3.4 GM/DL (3.4-5.0); BICARBONATE 28.5 MEQ/L (21.0-32.0); GLUCOSE,RANDOM 93 MG/DL (74-106); MAGNESIUM 2.2 MG/DL (1.5-2.5)
[2017-12-18 14:58] LABS: BLOOD UREA NITROGEN 26 MG/DL (7-18)
[2017-12-18 15:00] LABS: ALT (GPT) 39 U/L (10-53); AST (GOT) 22 U/L (15-37); PROTHROMBIN TIME - PATIENT 10.6 SEC (9.8-11.6)
[2017-12-18 15:01] LABS: GLOMERULAR FILTRATION RATE 48 ML/MIN (>89)
[2017-12-18 15:02] LABS: TOTAL BILIRUBIN ADULT 0.3 MG/DL (0.2-1.0); TOTAL PROTEIN 7.3 GM/DL (6.4-8.2)
[2017-12-18 15:03] LABS: ALKALINE PHOSPHATASE 62 U/L (45-117)
[2017-12-18 15:06] LABS: TROPONIN I LESS THAN 0.02 NG/ML (0.02-0.05)
[2017-12-18 15:31] VITALS: BP 150/70; PULSE 77; RESP 20; O2SAT 96
[2017-12-18] MEDS ORDERED: UMEC1AER INH (15:43)
[2017-12-18] MEDS ORDERED: NEXI20CA PO (15:43)
[2017-12-18 16:50] VITALS: BP 148/80; PULSE 78; RESP 16; O2SAT 96
--- NOTE | 2017-12-18 17:58 | EKG ---
Date Performed: 12/18/2017 Time Performed: 14:17:30 PTAGE: 77 years EKG: Sinus rhythm POSSIBLE LEFT ATRIAL ENLARGEMENT LEFT BUNDLE BRANCH BLOCK ABNORMAL ECG PREVIOUS TRACING : 08/01/2014 03.23 Since the previous tracing, no significant change noted DOCTOR: Bruce Alvarenga Interpretating Date/Time 12/18/2017 17:57:32
== END 2017-12-18 16:55 | disposition home or self-care (01) ==
LOC: PHED 13:42
DX: J44.1 Chronic obstructive pulmonary disease with (acute) exacerbation (principal); R94.31 Abnormal electrocardiogram [ECG] [EKG]; R07.89 Other chest pain; R06.02 Shortness of breath; I10 Essential (primary) hypertension; E78.00 Pure hypercholesterolemia, unspecified; K21.9 Gastro-esophageal reflux disease without esophagitis
CPT/HCPCS: 71046; 80053; 82550; 83735; 83880; 84484; 85025; 85610; 85730; 93005; 99285